=== PATIENT | female | born 1985 | race Caucasian/White ===

== ENCOUNTER 2017-11-05 11:15 | Outpatient (CLI) | payer OTHER, SELFPAY ==
--- NOTE | 2017-11-05 11:34 | DI.REPORT_ITS ---
SYMPTOM/DIAGNOSIS: LOW BACK PAIN, ACUTE, M54.5 LUMBAR SPINE: The vertebral bodies and disc spaces are well maintained. There are no significant degenerative changes. There is no evidence of scoliosis, spondylolysis or spondylolisthesis. The SI joints are unremarkable. An IU is incidentally noted. There are surgical clips in the right upper quadrant. The bowel gas pattern is unremarkable. IMPRESSION: Negative lumbar spine
== END 2017-11-05 11:16 ==
PROVIDERS: PCP Family Medicine; Visit Provider Family Medicine
DX: M54.5 Low back pain (principal)
CPT/HCPCS: 72110

== ENCOUNTER 2019-04-28 00:47 | Outpatient (CLI) | payer MEDICAID, SELFPAY ==
--- NOTE | 2019-04-28 09:30 | DI.MRI_ITS ---
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 TECHNIQUE: Multiplanar multisequence MRI was performed. COMPARISON: No exams were available for comparison FINDINGS: T12-L1 through L2-3 discs show normal height and hydration. There is partial disc desiccation at L3- 4 and mild disc bulging. There are mild facet joint degenerative changes but no significant neural f oraminal narrowing or central canal stenosis. At L4-5, there is a left foraminal disc protrusion, wh ich impinges on the exiting nerve root. There is overall mild disc bulging and small endplate osteop hytes at this level. There is no central canal stenosis. There are mild facet joint degenerative ch anges. The L5-S1 disc has a normal appearance. There minimal degenerative changes of the facet join ts. Marrow signal is normal. The conus medullaris appears intact. IMPRESSION: Left foraminal disc protrusion at L4-5.
== END 2019-04-28 01:07 ==
PROVIDERS: PCP Family Medicine; Visit Provider Family Medicine
DX: M54.16 Radiculopathy, lumbar region (principal); M51.16 Intervertebral disc disorders with radiculopathy, lumbar region; M47.26 Other spondylosis with radiculopathy, lumbar region
CPT/HCPCS: 72148

== ENCOUNTER 2019-12-29 16:49 | Outpatient (REF) | payer MEDICAID, SELFPAY ==
[2020-01-01 16:09] LABS: Patient Race White; SARS-CoV-2 RNA Undetected (Undetected); SARS-CoV-2 Specimen Source Nasopharynx
== END 2019-12-29 17:09 ==
LOC: NCHCN 16:49
PROVIDERS: PCP Family Medicine; Visit Provider Family Medicine
DX: J02.9 Acute pharyngitis, unspecified (principal)
CPT/HCPCS: U0003

== ENCOUNTER 2020-02-24 10:27 | Outpatient (REF) | payer MEDICAID, SELFPAY ==
--- NOTE | 2020-02-24 09:30 | PAPFT_PTH ---
PATIENT: Charlotte Marr LOC: [facility] U#:[id number] AGE/SX: 34/F ROOM: RE02/24/[address]: Ofe Nava NP : 1985 BED: DIS: 02/24/2020 SPEC #: [id number] RECD: 02/24/20 12:53 STATUS: ELEANOR REQ #: [id number] UYEN: 02/24/20 09:[address]: Ofe Nava NP DEPT: [facility] Cytology RECD BY: Chantell Lerma ENTERED: 02/24/20 12:54 SP TYPE: PAPFT OTHR DR: Dot Gonzalez V Tissues: 1 - CX/ENDOCX FOR PAP SMEARS Procedures: PAP THIN PREP/[facility] Screening HPV DNA PROBE Comments: [id number]
== END 2020-02-24 10:47 ==
LOC: LBN 10:27
PROVIDERS: PCP Family Medicine; Visit Provider Nurse Practitioner Women's Health
DX: Z12.4 Encounter for screening for malignant neoplasm of cervix (principal); Z11.51 Encounter for screening for human papillomavirus (HPV)
CPT/HCPCS: 88142; 87624

== ENCOUNTER 2021-01-03 10:26 | Outpatient (REF) | payer MEDICAID, SELFPAY ==
[2021-01-03 14:35] LABS: HCT 39.4 % (36.0-46.0); HGB 13.2 g/dL (11.2-15.7)
[2021-01-03 14:49] LABS: ALT 39 U/L (14-59); AST 21 U/L (15-37); Albumin 3.7 g/dL (3.4-5.0); Alkaline Phosphatase 80 U/L (46-116); Anion Gap 9.1 mmol/L (3-11); BUN 10 mg/dL (7-18); Bilirubin, Total 0.5 mg/dL (0.2-1.0); CO2 26.9 mmol/L (21.0-32.0); CREATININE 0.7 mg/dL (0.55-1.02); Calcium 8.7 mg/dL (8.5-10.1); Calculated LDL 87 mg/dL (<100); Chloride 107 mmol/L (98-107); Cholesterol 149 mg/dL (<200); Glucose 101 mg/dL (74-106); HDL Cholesterol 45 mg/dL (40-60); Potassium 4.2 mmol/L (3.5-5.1); Sodium 143 mmol/L (136-145); TSH (W/Ref FT4) 2.75 uIU/mL (0.36-3.74); Total Protein 7.1 g/dL (6.4-8.2); Triglyceride 88 mg/dL (<150)
[2021-01-03 14:51] LABS: Hemoglobin A1C 5.2 % (<5.7)
[2021-01-06 23:08] LABS: 2-OH-Ethyl-Flurazepam Negative ng/mL (Cutoff: 10); 7-NH-Clonazepam 578 ng/mL (Cutoff: 10); 7-NH-Flunitrazepam Negative ng/mL (Cutoff: 10); Alpha OH-Alprazolam 19 ng/mL (Cutoff: 10); Alpha-OH Midazolam Negative ng/mL (Cutoff: 10); Alpha-OH-Triazolam Negative ng/mL (Cutoff: 10); Alprazolam Negative ng/mL (Cutoff: 10); Benzodiazepines Interpretation Positive.; Chlordiazepoxide Negative ng/mL (Cutoff: 10); Clobazam Negative ng/mL (Cutoff: 10); Clonazepam 10 ng/mL (Cutoff: 10); Diazepam Negative ng/mL (Cutoff: 10); Flurazepam Negative ng/mL (Cutoff: 10); Lorazepam Negative ng/mL (Cutoff: 10); Midazolam Negative ng/mL (Cutoff: 10); N-Desmethylclobazam Negative ng/mL (Cutoff: 10); Prazepam Negative ng/mL (Cutoff: 10); Triazolam Negative ng/mL (Cutoff: 10); Zolpidem Carboxylic acid Negative ng/mL (Cutoff: 10)
== END 2021-01-03 10:27 | disposition home or self-care (01) ==
LOC: NCHCN 10:26
PROVIDERS: PCP Family Medicine; Visit Provider Family Medicine
DX: F41.9 Anxiety disorder, unspecified (principal); R03.0 Elevated blood-pressure reading, without diagnosis of hypertension; E66.9 Obesity, unspecified; Z13.1 Encounter for screening for diabetes mellitus; Z00.00 Encounter for general adult medical examination without abnormal findings
CPT/HCPCS: 80053; 80061; 80346; 83036; 84443; 85014; 85018

== ENCOUNTER 2021-10-27 15:47 | Outpatient (REF) | payer MEDICAID, SELFPAY ==
[2021-10-27 16:50] LABS: COVID-19 PCR Negative (Negative); Source Nasal/Nares
== END 2021-10-27 15:48 | disposition home or self-care (01) ==
LOC: LBO 15:47
PROVIDERS: PCP Family Medicine; Visit Provider Nurse Practitioner Family
DX: Z20.822 Contact with and (suspected) exposure to COVID-19 (principal)
CPT/HCPCS: 87635

== ENCOUNTER 2022-06-08 16:03 | Outpatient (REF) | payer MEDICAID, SELFPAY ==
[2022-06-13 15:44] LABS: 2-OH-Ethyl-Flurazepam Negative ng/mL (Cutoff: 10); 7-NH-Clonazepam 705 ng/mL (Cutoff: 10); 7-NH-Flunitrazepam Negative ng/mL (Cutoff: 10); Alpha OH-Alprazolam Negative ng/mL (Cutoff: 10); Alpha-OH Midazolam Negative ng/mL (Cutoff: 10); Alpha-OH-Triazolam Negative ng/mL (Cutoff: 10); Alprazolam Negative ng/mL (Cutoff: 10); Benzodiazepines Interpretation Positive.; Chlordiazepoxide Negative ng/mL (Cutoff: 10); Clobazam Negative ng/mL (Cutoff: 10); Clonazepam 10 ng/mL (Cutoff: 10); Diazepam Negative ng/mL (Cutoff: 10); Flurazepam Negative ng/mL (Cutoff: 10); Lorazepam Negative ng/mL (Cutoff: 10); Midazolam Negative ng/mL (Cutoff: 10); N-Desmethylclobazam Negative ng/mL (Cutoff: 10); Prazepam Negative ng/mL (Cutoff: 10); Temazepam Negative ng/mL (Cutoff: 10); Triazolam Negative ng/mL (Cutoff: 10); Zolpidem Carboxylic acid Negative ng/mL (Cutoff: 10)
== END 2022-06-08 16:04 | disposition home or self-care (01) ==
LOC: NCHCN 16:03
PROVIDERS: PCP Family Medicine; Visit Provider Family Medicine
DX: F41.8 Other specified anxiety disorders (principal); Z51.81 Encounter for therapeutic drug level monitoring; R82.5 Elevated urine levels of drugs, medicaments and biological substances
CPT/HCPCS: 80346

== ENCOUNTER 2023-09-24 15:03 | Outpatient (CLI) | payer OTHER, SELFPAY ==
[2023-09-24 13:01] LABS: ESR 20 mm/hr (0-20)
[2023-09-24 13:28] LABS: C-Reactive Protein 1.64 mg/dL (<or=0.5)
[2023-09-24 22:45] LABS: Rheumatoid Factor <8.6 IU/mL (<12.0)
[2023-10-02 16:21] LABS: ANA Interpretation Negative (Negative); Hepatitis C Ab w Rflx HCV PCR Negative (Negative); IgA 237 mg/dL (85-499); Interpretation (See Note); Tissue Transglutaminase IgA <4.0 CU (<20.0)
== END 2023-09-24 15:04 | disposition home or self-care (01) ==
PROVIDERS: PCP Family Medicine; Visit Provider Family Medicine
DX: R19.7 Diarrhea, unspecified (principal); M25.50 Pain in unspecified joint
CPT/HCPCS: 36415; 82784; 83516; 85652; 86803; 86038; 86140; 86431

== ENCOUNTER 2023-10-08 20:24 | Emergency (ER) | payer OTHER, SELFPAY ==
--- NOTE | 2023-10-08 20:30 | DI.RAD_ITS ---
Exam(s) XR PORTABLE CHEST AP EXAM: XR PORTABLE CHEST AP CLINICAL HISTORY: fever, cough, ?pneumonia TECHNIQUE: 2D digital imaging was performed of the chest. One image was obtained. An AP view was ob tained. COMPARISON: No exams were available for comparison FINDINGS: MEDIASTINUM: Normal. HEART: Normal. PULMONARY VASCULATURE: Normal. LUNGS: Clear. PLEURAL SPACE: No pleural effusion or pneumothorax. BONE:Within normal limits for the patient's age. OTHER FINDINGS:Normal. IMPRESSION: No acute pulmonary findings. DATA REPOSITORY: RADIATION DOSE DELIVERED:
[2023-10-08 20:31] VITALS: BP 183/111; PULSE 117; RESP 16; TEMP 39.4; O2SAT 96
--- NOTE | 2023-10-08 20:43 | W.ED.GENAD ---
Discharge Plan Disposition Patient Disposition: Home Condition: Stable Discharge Details Clinical Impression: COVID Primary Care Provider: Dot Gonzalez V ED Provider: Leonel Nava Home Meds and New Rx's Prescriptions: Continued escitalopram oxalate [Lexapro] 10 mg tablet 15 mg PO DAILY multivitamin [Daily Multiple] 1 EACH tablet 1 ea PO DAILY clonazepam 0.5 mg tablet 1 mg PO BID PRN Rx Instructions: may take an extra tablet per day 8 days a month atenolol 50 mg tablet 50 mg PO DAILY cholecalciferol (vitamin D3) 50 mcg (2,000 unit) capsule 50 mcg PO DAILY cyclobenzaprine 10 mg tablet 10 mg PO TID PRN Rx Instructions: for back pain dextroamphetamine-amphetamine 10 mg tablet 10 mg PO BID hydrocortisone valerate 0.2 % cream 1 applic topical BID PRN Discharge Instructions Additional Instructions: Continue to take the Paxlovid You can take 1000 mg of acetaminophen and 600 mg of ibuprofen every 6 hours as needed if you Feel more ill or failure having significant shortness of breath return to the emergency department for reevaluation HPI General Mode of arrival: ambulatory. Date/Time Provider Initiated Documentation: 10/08/23 20:25. Limitations to Documentation: no limitations. Information obtained by: patient. History of Present Illness 38 year old F presents to the emergency department with the chief complaint of positive covid, fever, described as moderate, Patient started experiencing this day(s) (1) and it has been constant. No relieving factors improve symptom(s), No exacerbating factors reported . Patient notes cough and fever/chills; denies nausea/vomiting and shortness of breath. Patient did receive the following treatments prior to arrival, none Related Data Home Medications ?Medication ?Instructions ?Recorded ?Confirmed multivitamin (Daily Multiple 1 ea PO DAILY 01/30/16 10/08/23 tablet) escitalopram oxalate 10 mg tablet 15 mg PO DAILY 02/24/20 10/08/23 (Lexapro) atenolol 50 mg tablet 50 mg PO DAILY 10/03/23 10/08/23 cholecalciferol (vitamin D3) 50 50 mcg PO DAILY 10/03/23 10/08/23 mcg (2,000 unit) capsule clonazepam 0.5 mg tablet 1 mg PO BID PRN 10/03/23 10/08/23 cyclobenzaprine 10 mg tablet 10 mg PO TID PRN 10/03/23 10/08/23 dextroamphetamine-amphetamine 10 10 mg PO BID 10/03/23 10/08/23 mg tablet hydrocortisone valerate 0.2 % 1 applic topical BID PRN 10/03/23 10/08/23 topical cream Allergies Allergy/AdvReac Type Severity Reaction Status Date / Time acetaminophen (From Lortab) Allergy Intermediate rash Verified 10/08/23 20:35 cefaclor (From Ceclor) Allergy Intermediate rash Verified 10/08/23 20:35 codeine Allergy Intermediate rash, Verified 10/08/23 20:35 change in BP hydrocodone (From Lortab) Allergy Intermediate rash Verified 10/08/23 20:35 loracarbef (From Lorabid) Allergy Intermediate rash Verified 10/08/23 20:35 Penicillins Allergy Intermediate rash Verified 10/08/23 20:35 citalopram AdvReac Intermediate irritabilit Verified 10/08/23 20:35 y General Stated Complaint: Fever GOMEZ: 5 Review of Systems All systems reviewed & are unremarkable except as noted in HPI and below Constitutional Constitutional: Reports chills, Reports fever(s) and Denies weakness ENT Ears, Nose, Mouth, and Throat: Denies change in voice Cardiovascular Cardiovascular: Denies chest pain Respiratory Respiratory: Reports cough Gastrointestinal Gastrointestinal: Denies vomiting Genitourinary Genitourinary: Denies dysuria Integumentary/Breasts Skin/Breast: Denies rash Neurologic Neurologic: Denies weakness Psychiatric Psychiatric: Denies depression Endocrine Endocrine: Denies cold intolerance and Denies heat intolerance Exam Const General: no acute distress Orientation: alert [facility] Head: normal to inspection Ears: external ears normal General nose exam: external nose normal Mouth: moist mucous membranes Eyes General: appearance normal, both eyes and all related structures Neck Neck: normal visual inspection Resp Effort & Inspection: normal respiratory effort and able to speak in complete sentences Auscultation: clear to auscultation bilaterally Cardio Jugular venous pressure: no JVD Rate: regular rate Heart Sounds: no murmurs Skin General skin exam: no rashes or lesions noted Neuro General: patient alert and patient oriented x3 Extrem General: normal to inspection Psych Mental Status: mental status grossly normal Course Vital Signs Vital signs: Vital Signs Temperature 39.4 C H 10/08/23 20:31 Pulse 117 H 10/08/23 20:31 Respiratory Rate 16 07/23/24 20:31 Blood Pressure 183/111 H 10/08/23 20:31 Pulse Oximetry 96 10/08/23 20:31 Temperature 39.4 C H 10/08/23 20:31 Temperature Source Oral 10/08/23 20:31 Pulse 117 H 10/08/23 20:31 Respiratory Rate 16 10/08/23 20:31 Respiratory Effort Normal 10/08/23 20:37 Blood Pressure 183/111 H 10/08/23 20:31 Blood Pressure Position Supine 10/08/23 20:31 Pulse Oximetry 96 10/08/23 20:31 Oxygen Delivery Method Room Air 10/08/23 20:31 Oxygen Flow Rate 0 10/08/23 20:31 Pain Level 6 10/08/23 20:31 Medical Decision Making 38-year-old female comes in with fevers for a day and tested positive for COVID. She says she started Paxlovid this morning, has had cough and does want to make sure her oxygen level was okay. She has noted to have a temperature of 39.4 on arrival here. Normal oxygenation, has also had a mild sore throat. She is speaking clearly in no distress. She has clear lung sounds, no JVD, no drooling or stridor. Suspect her symptoms are due to COVID given her positive test. Will check an x-ray to evaluate if she also needs antibiotics. She is not requiring oxygen so I do not feel hospitalization is indicated. Patient stable, x-ray my read is unremarkable. She is stable for discharge, advised follow-up with her PCP as needed return precautions given. She will continue Paxlovid. Differential Diagnosis Differential Diagnosis: COVID, pneumonia Imaging Data Radiologic Study: Attestation: I personally reviewed and interpreted this imaging study as follows: Imaging: X-Ray My impression: No acute findings Quality:SDOH Health Related Social Needs: No Data to Display PFSH All Active Problems (Updated 10/08/23 @ 20:50 by Leonel Nava MD) COVID (Acute) Medical History (Updated 10/08/23 @ 20:50 by Leonel Nava MD) Articular disc disorder of temporomandibular joint, unspecified side Sleep apnea Nerve root disorder Nicotine dependence Atypical squamous cells of undetermined significance on cytologic smear of cervix (ASC-US) Binge eating disorder Eczema Itch of skin Obesity Contraception management Elevated blood pressure reading without diagnosis of hypertension Depression Seasonal allergic rhinitis Panic disorder with agoraphobia ADHD (attention deficit hyperactivity disorder) Tachycardia Anhedonia Low back pain GERD without esophagitis Lumbosacral radiculopathy HPV (human papilloma virus) infection Anxiety disorder Adjustment disorder Abnormal weight gain Pain in joint of left shoulder IBS (irritable bowel syndrome) Achilles tendonitis Upper respiratory infection Disorder of the skin and subcutaneous tissue, unspecified abnormal Pap / HPV history Calculus of bile duct with cholecystitis History of depression Anxiety Surgical History (Updated 10/03/23 @ 14:44 by Magda Junior, JASMEET) History of gastrointestinal surgery tract excision section (12/07/13) IOL for postdates. Arrest of dilation. [facility]. Benjamin Aguilar. 8lb5.9oz. Cholecystectomy 2011 Family History (Updated 10/03/23 @ 14:46 by Magda Junior RN) Father Non-Hodgkin lymphoma Hypertension Mother Anxiety Thyroid disorder Sister Hypertension Thyroid disorder Other Heart disease Hyperlipidemia Osteoporosis Social History Smoking/Tobacco Use Status: Former Tobacco Use Tobacco: How many years used: 10 Smoking risk assessment performed?: Yes Drug use: Never
[2023-10-08] MEDS: Ibuprofen 600 MG TAB PO (21:06)
[2023-10-08 22:09] VITALS: BP 183/111; PULSE 110; RESP 16; TEMP 39.4; O2SAT 96
--- NOTE | 2023-10-08 22:34 | DI.VRAD_ITS ---
PROCEDURE INFORMATION: Exam: XR Chest Exam date and time: 10/08/2023 9:47 PM Age: 38 years old Clinical indication: Cough and fever; Patient HX: Fever, cough, ? pneumonia TECHNIQUE: Imaging protocol: Radiologic exam of the chest. Views: 1 view. COMPARISON: No relevant prior studies available. FINDINGS: Lungs: Lungs are clear throughout with no mass or consolidation detected. Pleural spaces: No pneumothorax or pleural effusion detected. Heart/Mediastinum: Heart size is normal and vessel margins are sharply defined. Bones/joints: No acute osseous lesions are detected. IMPRESSION: No acute findings. Dictated and Authenticated by: Rupert Blank MD. Ordering:YOLANDA Castaneda MD
== END 2023-10-08 22:04 | disposition home or self-care (01) ==
PROVIDERS: Emergency Provider Emergency Medicine; PCP Family Medicine
DX: U07.1 COVID-19 (principal); Z87.891 Personal history of nicotine dependence
CPT/HCPCS: 99283; 71045

== ENCOUNTER 2024-11-25 13:24 | Outpatient (REF) | payer OTHER, SELFPAY ==
[2024-11-26 11:19] LABS: Chlamydia Result Negative (Negative); GC Result Negative (Negative)
== END 2024-11-25 13:25 | disposition home or self-care (01) ==
LOC: LBN 13:24
PROVIDERS: PCP Family Medicine; Visit Provider Obstetrics & Gynecology
DX: Z11.3 Encounter for screening for infections with a predominantly sexual mode of transmission (principal)
CPT/HCPCS: 87491; 87591; 88142; 87480; 87510; 87624; 87660